=== PATIENT | male | born 1950 | race Caucasian/White ===

== ENCOUNTER → 2024-06-23 | Outpatient (CLI) | payer OTHER, SELFPAY ==
[2024-06-23 07:58] LABS: Collection Type, Urine Clean Catch; Squamous Epithelial Cell,Urine 0 /hpf (0-5)
[2024-06-23 08:30] LABS: Basophils % (Auto) 1 % (0-2.5); Eosinophils # (Auto) 0.2 Thou/mm3 (0.0-0.5); Eosinophils % (Auto) 3 % (0-10); Hematocrit 43.9 % (41.0-53.0); Hemoglobin 15.3 g/dL (13.5-16.0); Immature Granulocytes % (Auto) 0 % (0-0); Immature Granulocytes Auto 0.03 Thou/mm3 (0.00-0.00); Lymphocytes # (Auto) 2.6 Thou/mm3 (1.0-4.8); Lymphocytes % (Auto) 30 % (10-50); Mean Corpuscular HGB Conc 34.9 g/dl (31.0-37.0); Mean Corpuscular Volume 89 fL (80-100); Monocytes # (Auto) 0.8 Thou/mm3 (0.0-0.8); Monocytes % (Auto) 9 % (0-12); Neutrophils # (Auto) 4.9 Thou/mm3 (1.8-7.7); Neutrophils % (Auto) 57 % (37-80); Nucleated Red Blood Cell % 0 /100 WBC (0); Platelet Count 238 Thou/mm3 (140-440); RDW Standard Deviation 38.9 fL (35.1-43.9); Red Blood Count 4.94 Miln/mm3 (4.50-5.90); White Blood Count 8.6 Thou/mm3 (3.8-10.6)
[2024-06-23 08:39] LABS: Bilirubin,Urine Negative (Negative); Blood,Urine Negative (Negative); Clarity,Urine Clear (Clear/Hazy); Color,Urine Yellow (Lt Yel-Yel); Glucose, Urine Negative (Negative); Ketones,Urine Negative (Negative); Leukocyte Esterase,Urine Negative (Negative); Nitrite,Urine Negative (Negative); PH,Urine 5.5 (5.0-7.0); Protein,Urine Trace (Neg - Trace); RBC,Urine 3 /hpf (0-3); Specific Gravity,Urine 1.025 (1.001-1.035); Urobilinogen,Urine Negative mg/dL (0.0-1.0); WBC,Urine 1 /hpf (0-5)
[2024-06-23 08:57] LABS: Alanine Aminotransferase 49 U/L (10-49); Albumin, Serum 4.9 gm/dL (3.4-4.8); Albumin/Globulin Ratio 2.6 (1.2-2.2); Alkaline Phosphatase 114 U/L (46-116); Anion Gap 6 (7-16); Aspartate Amino Transferase 30 U/L (0-34); BUN/Creatinine Ratio 18 Ratio (12-20); Bilirubin,Total 2.5 mg/dL (0.3-1.2); Blood Urea Nitrogen 14 mg/dL (9-23); Calcium 9.8 mg/dL (8.3-10.6); Calcium (Corrected) 9.8 mg/dL (8.5-10.1); Carbon Dioxide 29.8 mMol/L (20.0-31.0); Cardiac Risk Estimate 5.8 RATIO (4.0-6.7); Chloride 104 mMol/L (98-107); Cholesterol 173 mg/dL (132-200); Creatinine (Component) 0.8 mg/dL (0.6-1.3); Globulin 1.9 gm/dL (2.3-3.5); Glucose 121 mg/dL (74-106); HDL Cholesterol 30 mg/dL (40-60); LDL Cholesterol,Calculated 93 mg/dL (0-130); Osmolality,Calculated 280 (275-295); Potassium 4.5 mMol/L (3.4-5.1); Sodium 140 mMol/L (136-145); Total Protein 6.8 gm/dL (5.7-8.2); Triglycerides 250 mg/dL (30-150); eGFR > 60 See Note
== END | disposition home or self-care (01) ==
LOC: COPL 06:52
PROVIDERS: PCP Family Medicine; Referring Provider Family Medicine; Visit Provider Family Medicine
DX: Z00.00 Encounter for general adult medical examination without abnormal findings (principal); E78.2 Mixed hyperlipidemia
CPT/HCPCS: 36415; 80053; 80061; 81001; 84443; 85025

== ENCOUNTER → 2024-07-28 | Outpatient (CLI) | payer OTHER, SELFPAY ==
[2024-07-28 09:57] LABS: Glucose Estimated Average 111 mg/dL (80-131); Hemoglobin A1C 5.5 % Hgb (4.8-6.0)
== END | disposition home or self-care (01) ==
LOC: COPL 08:03
PROVIDERS: PCP Family Medicine; Referring Provider Family Medicine; Visit Provider Family Medicine
DX: R73.01 Impaired fasting glucose (principal); Z83.3 Family history of diabetes mellitus
CPT/HCPCS: 36415; 83036

== ENCOUNTER 2024-11-06 16:14 | Emergency (ER) | payer OTHER, SELFPAY ==
[2024-11-06 16:15] VITALS: BMI 28.5
[2024-11-06 16:43] VITALS: BP 124/85; PULSE 85; RESP 12; TEMP 36.9; O2SAT 96
[2024-11-06] MEDS: DIPHTH,PERTUSS(ACELL),TET VAC 0.5 ML SYR- ADULT IMi (17:53)
--- NOTE | 2024-11-06 18:16 | PC.NURSE ---
WOUND DRESSED PER PROVIDER ORDERS
[2024-11-06 18:22] VITALS: BP 116/82; PULSE 79; RESP 14; TEMP 36.8; O2SAT 97
--- NOTE | 2024-11-06 18:35 | EDNOTE_ITS ---
ED Wound/Laceration-RME/HPI General Chief Complaint: Wound/Laceration Stated Complaint: DOG BITE TO LEFT HAND Time Seen by Provider: 11/06/24 17:09 Arrival date/time: 11/06/24 16:14 RME / HPI RME / HPI narrative: 74-year-old male presents to the ED with a complaint of left hand laceration secondary to a dog bite. Patient states this was his dog who he just adopted on Thursday. The past 2 days the dog has bit him twice, this time causing a deeper laceration to the left hand dorsal aspect. He has no functional deficit. Denies any numbness or tingling distally. He states his last tetanus is unknown. The dog is up-to-date on his immunizations. Related Data Home Medications ?Medication ?Instructions ?Recorded ?Confirmed baclofen 10 mg tablet 1 tab PO Q8HR 07/16/1702/09 docusate sodium 250 mg capsule 250 mg PO TID 07/16/17 02/09/19 oxycodone 10 mg tablet 10 tab PO Q8HR PRN Pain 01/2302/09/19 Previous Rx's ?Medication ?Instructions ?Recorded amoxicillin 875 mg-potassium 1 tab PO BID Animal bite #20 tabs 11/06/24 clavulanate 125 mg tablet Allergies Allergy/AdvReac Type Severity Reaction Status Date / Time No Known Allergies Allergy Verified 11/06/24 16:17 Review of Systems Review of Systems Systems Reviewed: All systems reviewed, normal except as documented Past Medical History Past Medical History NEUROLOGIC: Negative Neurological Disorders or Seizures CARDIAC: Positive Cardiac Disorders (MITRAL VALVE PROLAPSE) and Hypercholesterolemia (NO MEDS); Negative Congestive Heart Failure RESPIRATORY: Negative Chronic Obstructive Pulmonary Disease (COPD) GASTROINTESTINAL: Negative Gastrointestinal Disorders, Hepatitis or Colorectal Cancer GENITOURINARY: Positive Inguinal Hernia; Negative Genitourinary Disorders, Renal Disease or Prostate Cancer REPRODUCTIVE: Negative Breast Cancer, Genital Herpes, Gonorrhea, Syphilis or Testicular Cancer MUSCULOSKELETAL: Positive Musculoskeletal Disorders, Arthritis (BILATERAL KNEES, WRISTS), Fractures (LEFT ARM) and Degenerative Joint Disease ENDOCRINE: Negative Endocrine Disorders, Diabetes Mellitus Type 1 or Diabetes Mellitus Type 2 HEMATOLOGIC: Negative Blood Disorders, Anemia, Leukemia, Hemophilia, Thalassemia, Sickle Cell Disease or Clotting Problems OTHER HISTORY: Positive Chicken Pox (CHILD), Measles (CHILD), Mumps (CHILD) and Clostridium Difficile; Negative Hospitalization, Autoimmune Disease, Down Syndrome, Shingles (VACCINES), Falls, Blood Transfusions, Blood Transfusion Reaction, Anesthesia Reactions, Organ Transplant, Chemotherapy, Radiation Therapy, Hyperbaric Ther apy, Human Immunodeficiency Virus (HIV), Rubella (Malian Measles), Pertussis, Breast Cancer, Colorectal Cancer, Lung Cancer, Prostate Cancer or Testicular Cancer Family History FAMILY HISTORY: Positive Family Respiratory Disorders (FATHER(COPD)); Negative Family Psychiatric Problems, Family Cardiac Disorders, Family Gastrointestinal Problems, Family Cancer, Family Surgery or Family Anesthesia Reaction Surgical History SURGICAL: Positive Ear Surgery (PLASTIC SURGERY CHILD), Tonsillectomy and Vasectomy (REVERSAL); Negative Organ Transplant Social History SMOKING STATUS: Never smoker ED Exam Narrative Physical exam: Alert and oriented 74-year-old male, no acute distress. Dorsal aspect of left hand reveals a deep linear laceration approximately 4 cm in length. Bleeding is controlled on arrival. No functional deficit. Good flexion and extension of fingers. Good strength of the hand. CMS intact distally Course Course Course Narrative: Wound was cleansed and irrigated. Benzoin utilized for Steri-Strip placement. Patient tolerated procedure well. Tetanus was updated while in the ED. Patient will be discharged home with prescription for Augmentin to prevent infection. Patient was advised to watch for signs of infection which would include increased redness, swelling, pain. He was advised to return to the ED if any new symptoms occur. Orders Category Date Time Status Cleanse Wound NEEDED Care 11/06/24 17:35 Active Miscellaneous Nursing Order NOW Care 11/06/24 17:35 Active TDap [Obtain Tdap Consent] X1 Care 11/06/24 17:32 Completed Wound Care NOW Care 11/06/24 17:32 Active TET,DIP/PERT AC (Adult)-Tdap [Boostrix Adult (Tdap) Med 11/06/24 17:34 Discontinued Vacc] 0.5 ml IMI .ONCE ONE Vital Signs Vital signs: Vital Signs Temperature 98.5 F 11/06/24 16:43 Pulse Rate 85 11/06/24 16:43 Respiratory Rate 12 11/06/24 16:43 Blood Pressure 124/85 H 11/06/24 16:43 Pulse Oximetry (%) 96 11/06/24 16:43 Oxygen Delivery Method Nasal Cannula 11/06/24 16:43 Wound / Laceration Medications / Prescriptions Medication administrations:: Medication Administration History Discontinued Medications Diphtheria/Tetanus/Acell Pertussis (Diphth,Pertuss(Acell),Tet Vac 0.5 Ml Syr- Adult) 0.5 ml IMi .ONCE ONE Stop: 11/06/24 17:35 Last Admin: 11/06/24 17:53 Dose: 0.5 ml Documented By: JAY Discharge Plan Plan Patient Disposition: HOME (Self Care) Discharge Disposition comment: Stable and improved Prescriptions/Referrals Prescriptions/Med Rec: New amoxicillin-pot clavulanate 875-125 mg tablet 1 tab PO BID Qty: 20 0RF No Action baclofen 10 mg tablet 1 tab PO Q8HR Patient Comments: docusate sodium 250 mg Capsule 250 mg PO TID oxycodone 10 mg tablet 10 tab PO Q8HR PRN (Reason: Pain) Patient Comments: TAKE 1 TABLET BY MOUTH EVERY 6 TO 8 HOURS NEEDED FOR SEVERE PAIN Referrals: Nelson Reyes MD [Primary Care Provider] - In 1 week Problem List Clinical Impression: Dog bite of dorsum of hand Patient/Caregiver Discharge Instructions Education Materials: ED Dog Bite Additional Instructions: Follow-up with your primary care physician in 24 to 48 hours. Return to the ED for any new or worsening symptoms. Print Language: Wolof Stand Alone Forms: Martina Award Info., Patient Portal Info Letter Vaccines Vaccines Given During Stay: TDaP PA/CUSTOMER INSIGHT ANALYST Supervising Physician PA/CUSTOMER INSIGHT ANALYST Supervising Physician: Dr. Tang
[2024-11-06] MEDS: AMOXICILLIN/POT CLAV 875 TABLET 1 TAB PO (18:46)
== END 2024-11-06 18:48 | disposition home or self-care (01) ==
PROVIDERS: Emergency Provider Emergency Medicine; PCP Family Medicine
DX: S61.412A Laceration without foreign body of left hand, initial encounter (principal); W54.0XXA Bitten by dog, initial encounter; Z23 Encounter for immunization
CPT/HCPCS: 90471; 90715; 99282; A9270